=== PATIENT | male | born 1960 | race Caucasian/White ===

== ENCOUNTER 2017-02-06 08:30 | Inpatient (IN) | payer BC ==
[~2017-02-06] VITALS: Ht 177.8 cm; Wt 125.1 kg
[2017-02-07] MEDS ORDERED: INFL100P IV (11:36)
[2017-02-07] MEDS ORDERED: PANT40TA3 PO (11:36)
[2017-02-07] MEDS ORDERED: MULT-65 PO (11:36)
[2017-02-09] MEDS ORDERED: METOPROLOL TARTRATE 25 MG TAB PO PRN (10:45)
[2017-02-09] MEDS ORDERED: SODIUM CHLORID 0.9% 500 ML IV PRN (10:45)
[2017-02-09] MEDS ORDERED: POVIDONE IODINE 5% (ANTISEPSIS KIT) 4 APPLICATIONS EACH NARE PRN (10:45)
[2017-02-09] MEDS ORDERED: LACTATED RINGER'S 1000 ML IV PRN (10:45)
[2017-02-09] MEDS ORDERED: INSULIN HUMAN REGULAR 1,000 UNITS/10 ML VIAL SQ PRN (10:45)
[2017-02-09] MEDS ORDERED: CHLORHEXIDINE GLUCONATE 2 % 1 PACK (2 CLOTHS) TOPICAL PRN (10:45)
[2017-02-09] MEDS ORDERED: SCOPOLAMINE 1.5 MG PATCH T-DERMAL SCH (11:00)
[2017-02-09] MEDS ORDERED: ONDANSETRON HCL 4 MG/2 ML VIAL IV PUSH SCH (11:00)
[2017-02-09] MEDS ORDERED: ACETAMINOPHEN 1000 MG/100 ML 100 ML IV SCH (11:00)
[2017-02-09] MEDS ORDERED: ceFAZolin 2 GM PREMIX 50 ML IV SCH (11:00)
[2017-02-09] MEDS ORDERED: metroNIDAZOLE 500 MG INJ 100 ML IV SCH (11:00)
[2017-02-09] MEDS ORDERED: APREPITANT 40 MG CAP PO SCH (11:00)
[2017-02-09] MEDS ORDERED: PROPOFOL 200 MG/20 ML AMP IV ONE (13:26)
[2017-02-09] MEDS ORDERED: MIDAZOLAM HCL 2 MG/2 ML VIAL IV ONE (13:26)
[2017-02-09] MEDS ORDERED: NEOSTIGMINE 3 MG/3 ML SYR IV ONE (13:26)
[2017-02-09] MEDS ORDERED: PHENYLEPH/NS 1000 MCG/10 ML SYR IV ONE (13:26)
[2017-02-09] MEDS ORDERED: LACTATED RINGER'S 1000 ML INJ 1,000 ML IV ONE (13:26)
[2017-02-09] MEDS ORDERED: ONDANSETRON HCL 4 MG/2 ML VIAL IV PUSH ONE (13:26)
[2017-02-09] MEDS ORDERED: MORPHINE SULFATE 4 MG/ML INJ IV ONE (13:26)
[2017-02-09] MEDS ORDERED: DEXAMETHASONE SOD PHOS 4 MG/ML VIAL ONE (14:25)
[2017-02-09] MEDS ORDERED: FAMOTIDINE 20 MG/2 ML VIAL ONE (14:25)
[2017-02-09] MEDS ORDERED: BUPIVACAINE/EPINEPHRINE 0.25% 50 ML VIAL ONE (15:06)
[2017-02-09] MEDS ORDERED: ACETAMINOPHEN 325MG/HYDROcodone 7.5MG/15ML UDC PO PRN ×2 (16:30)
[2017-02-09] MEDS ORDERED: ENALAPRILAT 1.25 MG/ML VIAL IV PUSH PRN (16:30)
[2017-02-09] MEDS ORDERED: Post-op Orders (for Pharmacy) MISC OTHER ONE (16:30)
[2017-02-09] MEDS ORDERED: SODIUM CHLORIDE 0.9% FLUSH 10 ML FLUSH PRN (16:30)
[2017-02-09] MEDS ORDERED: diphenhydrAMINE HCL 50 MG/ML VIAL IV PRN (16:30)
[2017-02-09] MEDS ORDERED: ONDANSETRON HCL 4 MG/2 ML VIAL IV PRN (16:30)
[2017-02-09] MEDS ORDERED: diphenhydrAMINE HCL ELIXIR 12.5 MG/5 ML CUP PO PRN (16:30)
[2017-02-09] MEDS ORDERED: NALOXONE HCL 0.4 MG/ML AMP IV PUSH PRN (16:30)
[2017-02-09] MEDS ORDERED: DO NOT ADM ANY ANTICOAGULANT DRUGS PRN (16:43)
[2017-02-09] MEDS ORDERED: *morphine SULFATE 8 MG/ML PERIprocedure ONLY ONE (16:58)
[2017-02-09] MEDS: D5-1/2 NS + KCL 20 MEQ INJ 1,000 ML IV SCH (17:00)
[2017-02-09] MEDS: MORPHINE SULFATE 30 MG/30 ML PCA IV SCH (17:30)
[2017-02-09] MEDS: METOCLOPRAMIDE HCL 10 MG/2 ML VIAL IV PUSH SCH (18:12)
[2017-02-09 20:00] VITALS: BP 129/78; PULSE 74; RESP 17; TEMP 96.8; O2SAT 99
[2017-02-09] MEDS ORDERED: SODIUM CHLORIDE 0.9% FLUSH 10 ML FLUSH IV FLUSH SCH (21:00)
[2017-02-09] MEDS ORDERED: ENOXAPARIN SODIUM 40 MG/0.4 ML SYRINGE SQ SCH (21:00)
[2017-02-09 21:21] VITALS: RESP 18
[2017-02-09] MEDS: PCA - TOTAL MG MORPHINE DELIVERED PER SHIFT SCH (21:30)
[2017-02-09] MEDS: metroNIDAZOLE 500 MG INJ 100 ML IV SCH (21:30)
[2017-02-10] VITALS (7 sets, daily range): BP systolic 106–123; BP diastolic 62–74; PULSE 58–77; RESP 17–20; TEMP 96.4–97.3; O2SAT 97–100
[2017-02-10] MEDS: D5-1/2 NS + KCL 20 MEQ INJ 1,000 ML IV SCH ×2 (00:19→12:46)
[2017-02-10] MEDS: METOCLOPRAMIDE HCL 10 MG/2 ML VIAL IV PUSH SCH ×3 (01:00→12:50)
[2017-02-10] MEDS: RESP: ALBUTEROL 2.5 MG/3 ML NEB (SCH) INH ×5 (02:16→15:23)
[2017-02-10] MEDS: metroNIDAZOLE 500 MG INJ 100 ML IV SCH ×2 (05:15→15:01)
[2017-02-10] MEDS: MORPHINE SULFATE 30 MG/30 ML PCA IV SCH (05:38)
[2017-02-10] MEDS: PCA - TOTAL MG MORPHINE DELIVERED PER SHIFT SCH (06:00)
[2017-02-10 07:29] LABS: AUTOMATED NEUTROPHIL # 9.6 TH/MM3 (1.8-7.7); BASOPHIL # 0.1 TH/MM3 (0-0.2); BASOPHIL % 0.4 % (0.0-2.0); HEMATOCRIT 42.7 % (39.0-51.0); HEMO FLAGS DIFF FINAL; LYMPHOCYTE # 1.3 TH/MM3 (1.0-4.8); MEAN CELL VOLUME 92.7 FL (80.0-100.0); MEAN CORPUSCULAR HEMOGLOBIN 31.4 PG (27.0-34.0); MEAN CORPUSCULAR HGB CONC 33.9 % (32.0-36.0); MONO % 10.4 % (0.0-8.0); NEUT % 78.2 % (16.0-70.0); PLATELET COUNT 212 TH/MM3 (150-450); RED BLOOD COUNT 4.61 MIL/MM3 (4.50-5.90); RED CELL DISTRIBUTION WIDTH 14.7 % (11.6-17.2); WHITE BLOOD COUNT 12.3 TH/MM3 (4.0-11.0)
[2017-02-10 07:48] LABS: BICARBONATE 27.6 MEQ/L (21.0-32.0); MAGNESIUM 1.9 MG/DL (1.5-2.5); POTASSIUM 4.1 MEQ/L (3.5-5.1)
[2017-02-10] MEDS ORDERED: PANTOPRAZOLE SOD 40 MG DELAYED RELEASE TAB PO SCH (09:00)
--- NOTE | 2017-02-10 12:12 | HHI.PR ---
Subjective Subjective Notes Sitting up in chair Tolerating fluids No GI complaints Objective Vitals/I&O Vital Signs Date Time Temp Pulse Resp B/P (MAP) Pulse Ox O2 Delivery O2 Flow Rate FiO2 02/10/17 08:32 97 Nasal Cannula 2.00 02/10/17 08:00 97.3 77 18 106/64 (78) Labs Laboratory Tests Test 02/10/17 06:56 White Blood Count 12.3 Red Blood Count 4.61 Hemoglobin 14.5 Hematocrit 42.7 Mean Corpuscular Volume 92.7 Mean Corpuscular Hemoglobin 31.4 Mean Corpuscular Hemoglobin Concent 33.9 Red Cell Distribution Width 14.7 Platelet Count 212 Mean Platelet Volume 8.5 Neutrophils (%) (Auto) 78.2 Lymphocytes (%) (Auto) 11.0 Monocytes (%) (Auto) 10.4 Eosinophils (%) (Auto) 0.0 Basophils (%) (Auto) 0.4 Neutrophils # (Auto) 9.6 Lymphocytes # (Auto) 1.3 Monocytes # (Auto) 1.3 Eosinophils # (Auto) 0.0 Basophils # (Auto) 0.1 CBC Comment DIFF FINAL Differential Comment Blood Urea Nitrogen 8 Creatinine 0.73 Random Glucose 117 Calcium Level 8.4 Magnesium Level 1.9 Sodium Level 140 Potassium Level 4.1 Chloride Level 106 Carbon Dioxide Level 27.6 Anion Gap 6 Estimat Glomerular Filtration Rate 112 Cardiovascular: Regular Lungs: Clear Extremities: Perfused Wound Wound : Wound Location: Abdomen Appearance: Clean & Dry A/P Assessment and Plan 56yo M POD#1 laparoscopic VSG -Continue with frequent ambulation -Continue to increase fluids as tolerated The exam, history, and the medical decision-making described in the above note were completed with the assistance of the mid-level provider. I reviewed and agree with the findings presented. I attest that I had a [id number] encounter with the patient on the same day, and personally performed and documented my assessment and findings in the medical record. Discharge Planning D/C home later today Desean Gross Feb 10, 2017 12:12 Leonidas Palma MD Feb 12, 2017 16:06
[2017-02-10] MEDS ORDERED: METOCLOPRAMIDE HCL 10 MG/2 ML VIAL IV PUSH PRN (16:30)
--- NOTE | 2017-02-13 10:10 | MP ---
cc: LEONIDAS PALMA DATE OF 1960 DATE OF OPERATION 02/09/2017 PREOPERATIVE DIAGNOSIS Morbid obesity with a BMI of 40 complicated by obstructive sleep apnea. POSTOPERATIVE DIAGNOSIS Morbid obesity with a BMI of 40 complicated by obstructive sleep apnea. PROCEDURE Laparoscopic vertical sleeve gastrectomy over a 36-[place] ViSiGi bougie. SURGEON Leonidas Palma MD CONTROL AREA OPERATOR MD Dr. Ronak Sierra was assistant manager bilingual; was necessary for the procedure due to the complexity of the procedure. Dr. Simons was utilized for manipulation and exposure during the procedure. Dr. Simons assisted further for the entire procedure. The assistant manager bilingual provided by [employer] was utilized for managing the camera. ANESTHESIA General endotracheal anesthesia. ESTIMATED BLOOD LOSS Scant. FINDINGS There appeared to be some extraserosal scarring on the stomach. As a result, it was decided to send the stomach to pathology. SPECIMEN Excised stomach. COMPLICATIONS None. OPERATION The patient was brought to the operating room and placed on the operating table in supine position, bilateral sequential inflation device placed on lower extremities. General anesthesia was instituted. Antibiotics was initiated. The abdomen was prepped and draped sterilely. A point 15 cm distal to the xiphoid in the midline was anesthetized with 0.25% Marcaine with epinephrine. A skin incision was made, 5-mm OptiView port placed under direct vision and pneumoperitoneum created. Under direct vision, three 5-mm left upper quadrant, a 15-mm right upper quadrant, 5-mm right upper quadrant ports placed. Prior to placement of all ports the skin and peritoneum were anesthetized with 0.25% Marcaine with epinephrine. The patient was placed in reverse Trendelenburg position left side up, the Jeanne-Flex retractor was placed. The left lobe of the liver was retracted. The vasculature along the greater curvature of the stomach was using harmonic scalpel starting a distance 5-cm proximal to the pylorus and carried towards the angle of His. The angle of His was taken down bluntly. Posterior ligamentous attachments were sharply . A 36-[place] ViSiGi bougie was placed at the start of the case, was placed on suction. Division of the stomach started 5 cm proximal to the pylorus and carried towards the angle of His to completely excise approximately 80% of the stomach. This was performed using an [place] Flex stapler at the pylorus. The first firing was with a black load, followed by a green load and four gold loads. All staple loads were reinforced with SeamGuard. A distance of 2 cm was left from the angle incisura and the staple line and a distance of 1 cm left from the GE junction and the staple line. The pylorus was then occluded, methylene blue tinged saline was instilled. There was no evidence of extravasation. The gastrocolic ligament was then sutured to the posterior leaflet of the SeamGuard using a 2-0 Vicryl suture in a running manner. Bleeding points were controlled with Evicel. The excised stomach was removed from the peritoneal cavity through the 15-mm port site in an Endopouch. The fascia at the 15-mm port site was approximated with 0 Vicryl suture. The CO2 was then released, all ports were removed, all skin incisions closed with 4-0 Monocryl. The abdominal wall was cleaned. A sterile dressing was placed. The patient was awakened and taken to the recovery room. Leonidas Palma MD JS/SSB /12:16 AM /10:01 AM
== END 2017-02-10 17:44 | disposition home or self-care (01) | DRG 620 ==
LOC: HSDI 02-09 09:39 → N07B 02-09 18:02
PROVIDERS: ADMIT Surgery; ATTEND Surgery
PROC: 0DB64Z3 Excision of Stomach, Percutaneous Endoscopic Approach, Vertical (ICD-10-PCS; principal; 2017-02-09 14:37)
DX: E66.01 Morbid (severe) obesity due to excess calories (principal); M31.30 Wegener's granulomatosis without renal involvement; G47.33 Obstructive sleep apnea (adult) (pediatric); K21.9 Gastro-esophageal reflux disease without esophagitis; Z68.41 Body mass index [BMI] 40.0-44.9, adult; Z86.718 Personal history of other venous thrombosis and embolism
CPT/HCPCS: 80048; 83735; 85025; 88307; 94150; 94640; J0131; J0690; J1100; J1650; J2250; J2270; J2370; J2405; J2710; J2765; J3010; J3480; J7120; J7613; J8501